=== PATIENT | female | born 1955 | race Two or more races ===

== ENCOUNTER → 2022-03-21 11:10 | Outpatient (BNVA) | payer MEDICARE, SELFPAY | PROVIDERS: Visit Provider Physician Assistant | DX: R10.9 Unspecified abdominal pain (principal) | CPT/HCPCS: 99202 ==

== ENCOUNTER 2022-03-21 11:47 | Outpatient (REF) | payer MEDICARE, SELFPAY ==
[2022-03-21 13:51] LABS: MANUAL DIFF FLAG NO
[2022-03-21 13:58] LABS: Basophils Absolute Auto 0.1 X10*3/uL (0.0-0.2); Basophils Percent Auto 0.9 % (0-2); Eosinophils Absolute Auto 0.6 X10*3/uL (0.0-0.4); Eosinophils Percent Auto 7.5 % (0-4); Hematocrit 45.4 % (37.0-47.0); Hemoglobin 14.1 g/dl (12.0-16.0); Imm Gran Abs Auto 0.03 X10*3/uL (0.00-0.03); Imm Gran Pct Auto 0.4 % (0.0-0.4); Lymphocytes Percent Auto 26.7 % (20-40); Mean Corpuscular HGB Conc 31.1 g/dl (31.0-35.0); Mean Corpuscular Hemoglobin 25.3 pg (27.0-33.0); Mean Corpuscular Volume 81.5 fL (80.0-98.0); Mean Platelet Volume 11.9 fL (9.4-12.3); Monocytes Absolute Auto 0.7 X10*3/uL (0.1-1.2); Monocytes Percent Auto 9.1 % (2-11); Neutrophils Absolute Auto 4.2 x10*3/uL (2.0-8.3); Neutrophils Percent Auto 55.4 % (45-73); Platelet Count 270 X10*3/uL (160-400); Red Blood Count 5.57 X10*6/uL (4.20-5.50); Red Cell Distribution Width 14.2 % (11.0-16.0); White Blood Count 7.6 X10*3/uL (4.8-10.8)
[2022-03-21 14:29] LABS: Alanine Aminotransferase 16 U/L (0-31); Albumin Level 4.3 g/dL (3.5-5.0); Alkaline Phosphatase 110 U/L (39-117); Anion Gap 16 (12-20); Aspartate Amino Transferase 16 U/L (5-31); Bilirubin Total 0.4 mg/dL (0.0-1.0); Blood Urea Nitrogen 15 mg/dL (9-16); Calcium 9.8 mg/dL (8.4-10.2); Carbon Dioxide 28 mmol/L (22-29); Chloride 104 mmol/L (96-108); Estimated Glomerular Filt Rate > 60; Glucose Random 125 mg/dL (60-115); Potassium 4.2 mmol/L (3.3-5.1); Sodium 144 mmol/L (135-145); Total Protein 7.2 g/dL (6.5-8.0)
== END 2022-03-21 11:48 | disposition home or self-care (01) ==
LOC: HO.WFDLDS 11:47
PROVIDERS: Visit Provider Physician Assistant
DX: R10.9 Unspecified abdominal pain (principal)
CPT/HCPCS: 36415; 80053; 84443; 85025

== ENCOUNTER → 2022-04-04 10:57 | Outpatient (BNVA) | payer MEDICARE, SELFPAY | PROVIDERS: Visit Provider Physician Assistant | DX: Z13.89 Encounter for screening for other disorder (principal) ==

== ENCOUNTER 2022-04-04 11:46 | Outpatient (REF) | payer MEDICARE, SELFPAY ==
[2022-04-04 13:52] LABS: MANUAL DIFF FLAG NO
[2022-04-04 13:58] LABS: Basophils Absolute Auto 0.1 X10*3/uL (0.0-0.2); Basophils Percent Auto 1.2 % (0-2); Eosinophils Absolute Auto 0.4 X10*3/uL (0.0-0.4); Eosinophils Percent Auto 6.1 % (0-4); Hematocrit 43.8 % (37.0-47.0); Imm Gran Abs Auto 0.02 X10*3/uL (0.00-0.03); Imm Gran Pct Auto 0.3 % (0.0-0.4); Lymphocytes Absolute Auto 1.8 X10*3/uL (1.2-4.9); Lymphocytes Percent Auto 29.7 % (20-40); Mean Corpuscular Hemoglobin 25.9 pg (27.0-33.0); Mean Platelet Volume 11.6 fL (9.4-12.3); Monocytes Absolute Auto 0.7 X10*3/uL (0.1-1.2); Monocytes Percent Auto 11.5 % (2-11); Neutrophils Percent Auto 51.2 % (45-73); Platelet Count 248 X10*3/uL (160-400); Red Blood Count 5.41 X10*6/uL (4.20-5.50); Red Cell Distribution Width 14.2 % (11.0-16.0); White Blood Count 5.9 X10*3/uL (4.8-10.8)
[2022-04-04 14:56] LABS: Alanine Aminotransferase 18 U/L (0-31); Albumin Level 4.1 g/dL (3.5-5.0); Alkaline Phosphatase 105 U/L (39-117); Anion Gap 11 (12-20); Aspartate Amino Transferase 17 U/L (5-31); Bilirubin Total 0.4 mg/dL (0.0-1.0); Blood Urea Nitrogen 16 mg/dL (9-16); Calcium 9.4 mg/dL (8.4-10.2); Carbon Dioxide 32 mmol/L (22-29); Chloride 104 mmol/L (96-108); Estimated Glomerular Filt Rate > 60; Glucose Random 143 mg/dL (60-115); Potassium 4.1 mmol/L (3.3-5.1); Sodium 143 mmol/L (135-145); Total Protein 6.8 g/dL (6.5-8.0)
== END 2022-04-04 11:47 | disposition home or self-care (01) ==
LOC: HO.WFDLDS 11:46
PROVIDERS: Visit Provider Physician Assistant
DX: R10.9 Unspecified abdominal pain (principal); R93.5 Abnormal findings on diagnostic imaging of other abdominal regions, including retroperitoneum
CPT/HCPCS: 36415; 80053; 85025; 99212

== ENCOUNTER 2022-10-26 08:50 | Day surgery (SDC) | payer MEDICARE, SELFPAY ==
[2022-10-24 11:16] VITALS: BMI 29.7
--- NOTE | 2022-10-25 12:57 | P.CONAN_ITS ---
Documented by User: Maribel Mondragon NP 10/25/22 12:57 HPI - Anesthesia Eval Consult details Narrative: 67yo F for Colonoscopy PMFSH Active Problems Active Problems: All Active Problems (Updated 04/04/22 @ 11:59 by Myra Wild PA-C) Abnormal CT of the abdomen (Acute) Abdominal pain (Acute) Family History Family History Mother Dementia Sister Glaucoma Surgical History Surgical History H/O shoulder surgery History of repair of right rotator cuff Hx of appendectomy Hx of arthroscopy of left knee Hx of arthroscopy of right knee Hx of bilateral cataract extraction Hx of carpal tunnel repair Hx of tubal ligation Hx of unilateral oophorectomy Social History Social History Household Members: Spouse Alcohol intake: never Patient Tobacco Use Status: Never used Tobacco Meds Allergies Allergy/AdvReac Type Severity Reaction Status Date / Time shellfish derived Allergy Severe Unknown Verified 04/04/22 10:58 seafood Allergy Mild Unknown Verified 04/04/22 11:00 Home Medications Medication Instructions Recorded Confirmed Last Taken Type acetaminophen 500 mg capsule 500 mg PO QID PRN 03/21/22 Unknown History albuterol sulfate 90 mcg/actuation 0 mcg inhalation 03/21/22 Unknown History aerosol inhaler amlodipine 5 mg tablet 5 mg PO DAILY 03/21/22 Unknown History fluticasone propionate 44 0 mcg inhalation 03/21/22 Unknown History mcg/actuation HFA aerosol inhaler (Flovent HFA) lisinopril 40 mg tablet 40 mg PO DAILY 03/21/22 Unknown History melatonin 10 mg capsule 10 mg PO BEDTIME PRN 03/21/22 Unknown History Exam Exam Date and Time: October 25, 2022 1257 Height,Weight and Vital Signs: Height 5 ft Weight 68.946 kg Assessment and Plan Assessment Anesthesia Assessment: Chart Reviewed Documented by User: [place] MD 10/26/22 16:38 [facility] Past Medical History Functional capacity: independent ambulation Family History Family History Mother Dementia Sister Glaucoma Family history of problems with anesthesia: No Surgical History Surgical History H/O shoulder surgery History of repair of right rotator cuff Hx of appendectomy Hx of arthroscopy of left knee Hx of arthroscopy of right knee Hx of bilateral cataract extraction Hx of carpal tunnel repair Hx of tubal ligation Hx of unilateral oophorectomy History of Problems with Anesthesia: Yes (ponv ) Social History Social History Household Members: Spouse Alcohol intake: never Patient Tobacco Use Status: Never used Tobacco Meds Allergies Allergy/AdvReac Type Severity Reaction Status Date / Time shellfish derived Allergy Severe Unknown Verified 04/04/22 10:58 seafood Allergy Mild Unknown Verified 04/04/22 11:00 Home Medications Medication Instructions Recorded Confirmed Last Taken Type acetaminophen 500 mg capsule 500 mg PO QID PRN 03/21/22 Unknown History albuterol sulfate 90 mcg/actuation 0 mcg inhalation 03/21/22 Unknown History aerosol inhaler amlodipine 5 mg tablet 5 mg PO DAILY 03/21/22 Unknown History fluticasone propionate 44 0 mcg inhalation 03/21/22 Unknown History mcg/actuation HFA aerosol inhaler (Flovent HFA) lisinopril 40 mg tablet 40 mg PO DAILY 03/21/22 Unknown History melatonin 10 mg capsule 10 mg PO BEDTIME PRN 03/21/22 Unknown History Exam Airway Mallampati Class: III Neck ROM: Full Loose/Missing/Broken Teeth: Yes Assessment and Plan Assessment Anesthesia Assessment: Anesthesia Plan Discussed Final Anesthetic Review Family History of Problems with Anesthesia: No History of Problems with Anesthesia: Yes (ponv ) ASA Class: II Final Preanesthetic Review: Meds/Allgs Chart Reviewed, Consent Obtained/Reviewed and Anes Risks/Benef Reviewed Patient Risk: Intermediate Procedure Risk: Intermediate Anesthetic Plan Anesthetic Plan: MAC: Disposition: Standard PACU
[2022-10-26 09:56] VITALS: BP 151/85; PULSE 64; RESP 17; TEMP 36.4; O2SAT 97; BMI 29.7
--- NOTE | 2022-10-26 10:56 | MHC.SHP ---
Pre-Procedural Eval Section A Date of Service: 10/26/22 Section B Chief Complaint: Abnormal findings on diagnostic imaging Relevant Family History (Specify if Yes): No Relevant Social History: None Present Medications: see Short Stay Collaborative assessment Medical History: Significant History (HTN) History of Previous Operations: Relevant previous surgery/procedure and date(s) (H/O shoulder surgery History of repair of right rotator cuff Hx of appendectomy Hx of arthroscopy of left knee Hx of arthroscopy of right knee Hx of bilateral cataract extraction Hx of carpal tunnel repair Hx of tubal ligation Hx of unilateral oophorectomy) Allergies: Allergies Allergy/AdvReac Type Severity Reaction Status Date / Time shellfish derived Allergy Severe Unknown Verified 04/04/22 10:58 seafood Allergy Mild Unknown Verified 04/04/22 11:00 Review of Systems Sugical H&P ROS: Negative: Constitution, Cardiovascular, Respiratory, Neurological, Psychiatric, Hem-Onc, Allergic/Immunologic, Gastrointestinal, Genitourinary, Musculoskeletal, Integumentary, Endocrine and Eyes/Ears/Nose/Throat Exam Surgical H&P Exam: Normal: HEENT, Normal: Heart, Normal: Lungs, Normal: Extremities, Normal: Abdomen, Normal: Skin and Normal: Neurological Plan Diagnosis/Plan: Unchanged I have reviewed the history and physical and performed a pertinent physical examination on my patient. No changes have occurred unless specified. Time Spent With Patient Time: Total time managing care of this patient today ____ minutes.
--- NOTE | 2022-10-26 11:12 | W.PM.OPN ---
Operative Note Operative Note Date of Service: 10/26/22 Narrative: Operative Information Procedure Description: Colonoscopy Indication: abn imaging Anesthesia: MAC COLONOSCOPY Instrument: Olympus variable stiffness pediatric scope 190L Colonoscopy Monitoring: Vital signs and clinical assessment, continuous EKG monitoring, Pulse oximetry, Carbon Dioxide monitoring and blood pressure monitoring were done throughout the procedure. Colon withdrawal time was 8 minutes. Procedure: The patient was placed in the left lateral decubitis position and pre-procedure medications were administered. After a digital rectal examination of the ano-rectum, the video colonoscope was inserted into the rectum and advanced through the colon to the cecum/TI. The colonoscope was slowly withdrawn in a retrograde panoramic fashion and the colon mucosa was carefully examined including a retroflexed view of the rectum. Findings and interventions are described below. Procedure Difficulty: easy Findings: Terminal Ileum-normal Cecum: diverticulosis Ascending Colon: moderate diverticulosis Transverse Colon -normal Descending Colon: patchy diverticulosis Sigmoid Colon: severe diverticulosis Rectum: Retroflexion with small internal hemorrhoids, grade I Anorectum - normal Colon preparation: [place] Bowel Preparation Scale Right colon; 2 Transverse colon: 3 Left colon; 3 (0 = Unprepared colon segment with mucosa not seen due to solid stool that cannot be cleared. 1 = Portion of mucosa of the colon segment seen, but other areas of the colon segment not well seen due to staining, residual stool and/or opaque liquid. 2 = Minor amount of residual staining, small fragments of stool and/or opaque liquid, but mucosa of colon segment seen well. 3 = Entire mucosa of colon segment seen well with no residual staining, small fragments of stool or opaque liquid) Impression and Post Procedure Diagnosis: internal hemorrhoids momin diverticular disease Plan: High fiber diet leaflet Avoid straining at stool, epsom salts and sitz bath, anusol supps or cream Repeat Colonoscopy in 10 years or earlier if clinically indicated Above findings were reviewed with the patient and relevant handouts were provided if indicated.
[2022-10-26 11:35] VITALS: BP 92/55; PULSE 73; RESP 16; TEMP 36.6; O2SAT 98
[2022-10-26 11:50] VITALS: BP 126/79; PULSE 70; RESP 16; TEMP 36.6; O2SAT 97
== END 2022-10-26 12:33 | disposition home or self-care (01) ==
PROVIDERS: PCP Internal Medicine; Visit Provider Internal Medicine Gastroenterology
PROC: 0DJD8ZZ Inspection of Lower Intestinal Tract, Via Natural or Artificial Opening Endoscopic (ICD-10-PCS; CPT 45378; principal; 2022-10-26 11:40)
DX: R93.5 Abnormal findings on diagnostic imaging of other abdominal regions, including retroperitoneum (principal); R10.9 Unspecified abdominal pain; K57.30 Diverticulosis of large intestine without perforation or abscess without bleeding; I10 Essential (primary) hypertension; Z79.51 Long term (current) use of inhaled steroids; Z79.899 Other long term (current) drug therapy; Z98.890 Other specified postprocedural states
CPT/HCPCS: 45378

== ENCOUNTER → 2022-10-26 08:50 | Outpatient (BNV) | payer MEDICARE, SELFPAY | PROVIDERS: PCP Internal Medicine; Visit Provider Internal Medicine Gastroenterology | DX: R93.89 Abnormal findings on diagnostic imaging of other specified body structures (principal); K57.90 Diverticulosis of intestine, part unspecified, without perforation or abscess without bleeding; K64.9 Unspecified hemorrhoids | CPT/HCPCS: 45378 ==

== ENCOUNTER 2022-11-07 11:52 | Outpatient (AMB) | payer MEDICARE, SELFPAY ==
--- NOTE | 2022-11-07 12:01 | MHC.OFFVIS ---
Intake Vital Signs 11/07/22 12:11 Height 5 ft Weight 152 lb BMI 29.7 BP 130/74 Blood Pressure Location Lt brachial Position Sitting Pulse 74 Intake Visit Reasons: Colonoscopy results Intake Note: Patient follow up for Colonoscopy results. Patient denies any GI issues. 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: No Accompanied by: Self / Same As Patient Allergies shellfish derived Allergy (Severe, Verified 11/07/22 12:00) Unknown seafood Allergy (Mild, Verified 11/07/22 12:00) Unknown HPI HPI Comments History of Present Illness Details A 67 y/o female arrives in [place]- she has appointment in [place] 11/09- Colonoscopy after abnormal CT Reviewed procedure report, recommendations Opportunity for questions related to diet, diverticulosis/diverticulitis answered to her satisfaction She tolerated procedure well- She has a normal bowel pattern BM daily she has a lot of vegetable She has a good appetite No nausea, vomiting hematemesis hematochezia fever chills She walks with a cane-[facility] Surgical History Hx of colonoscopy Hx of bilateral cataract extraction History of repair of right rotator cuff Hx of arthroscopy of right knee Hx of arthroscopy of left knee H/O shoulder surgery Hx of carpal tunnel repair Hx of tubal ligation Hx of unilateral oophorectomy Hx of appendectomy Family History Mother Dementia Sister Glaucoma Social History Household Members: Spouse Alcohol intake: never Patient Tobacco Use Status: Never used Tobacco Review of Systems Const All systems reviewed & are unremarkable except as noted in HPI and below Card Denies chest pain and Denies dyspnea Resp Denies dyspnea GI Denies abdominal pain and Denies change in bowel habits Physical Exam Vital Signs: Last Vital Signs Pulse 74 11/07/22 12:11 BP 130/74 11/07/22 12:11 BMI result Body Mass Index 29.7 Const General: cooperative, healthy appearing, comfortable and no acute distress Orientation/consciousness: patient oriented x3 Limitations: ambulation with cane Skin General skin exam: no rashes or lesions noted Neuro General: patient oriented x3 Psych Appearance: grossly normal and well kempt Mental Status: mental status grossly normal Speech and movement: Normal speech and movement present and Clear speech present Affect: normal affect Attitude: cooperative Thought process: Normal thought process present Thought content: Normal thought content present Insight: Good insight present (Psych) Judgement: Good judgement present (Psych) Results Reviewed Results Reviewed: mpression and Post Procedure Diagnosis: internal hemorrhoids momin diverticular disease Plan: High fiber diet leaflet Avoid straining at stool, epsom salts and sitz bath, anusol supps or cream Repeat Colonoscopy in 10 years or earlier if clinically indicated Assessment & Plan Assessment & Plan (1) Abnormal CT of the abdomen: Comment: Short-segment of a centric wall thickening with adjacent inflammatory changes in the upper sigmoid colon likely reflecting diverticulitis. However, inflammatory tumor could appear similar and short-term follow-up is recommended Code(s): R93.5 - Abnormal findings on diagnostic imaging of other abdominal regions, including retroperitoneum Plan: Review procedure report in detail Discuss diverticulosis diverticulitis ER protocol (2) Diverticulosis of colon: Code(s): K57.30 - Diverticulosis of large intestine without perforation or abscess without bleeding Plan: ER protocol (3) Hemorrhoids: Code(s): K64.9 - Unspecified hemorrhoids Plan: Maintain high-fiber diet Avoids strain Patient Instructions: Reviewed repeat procedure report recommendation Maintain high-fiber diet-literature given Avoid straining ER protocol for diverticulosis/diverticulitis Repeat asymptomatic colonoscopy 10 years Coding Level of Care Code Est Pt Level 3 (91094) Diagnoses Abnormal CT of the abdomen R93.5 Diverticulosis of colon K57.30 Hemorrhoids K64.9 Time Spent (min) 30
[2022-11-07 12:11] VITALS: BP 130/74; PULSE 74; BMI 29.7
== END 2022-11-07 15:27 | disposition home or self-care (01) ==
LOC: HO.HGIW 11:52
PROVIDERS: PCP Internal Medicine; Visit Provider Physician Assistant
DX: R93.5 Abnormal findings on diagnostic imaging of other abdominal regions, including retroperitoneum (principal); K57.30 Diverticulosis of large intestine without perforation or abscess without bleeding; K64.9 Unspecified hemorrhoids
CPT/HCPCS: 99213

== ENCOUNTER → 2022-11-07 11:52 | Outpatient (BNVA) | payer MEDICARE, SELFPAY | PROVIDERS: PCP Internal Medicine; Visit Provider Physician Assistant | DX: K57.30 Diverticulosis of large intestine without perforation or abscess without bleeding (principal); K64.9 Unspecified hemorrhoids; R93.5 Abnormal findings on diagnostic imaging of other abdominal regions, including retroperitoneum | CPT/HCPCS: 99212 ==